=== PATIENT | female | born 1965 | race Caucasian/White ===

== ENCOUNTER 2017-10-25 08:43 | Day surgery (SDC) | payer BC ==
[~2017-10-25 08:43] MED LIST: Lactated Ringers 1,000 ML IV SCH; Sodium Chloride 0.9% 1,000 ML IV SCH; Sodium Chloride 0.9% 10 ML Syringe FLUSH PRN; Sodium Chloride 0.9% 2.5 ML Syringe FLUSH PRN
[2017-10-25] MEDS ORDERED: Lidocaine 2% 5 ML SDV ONE (08:44)
[2017-10-25] MEDS ORDERED: fentaNYL 250 MCG/5 ML SDV ONE (08:44)
[2017-10-25] MEDS ORDERED: Ondansetron 4 MG/2 ML SDV ONE (08:44)
[2017-10-25] MEDS ORDERED: Propofol 200 MG/20 ML SDV ONE (08:44)
[2017-10-25] MEDS ORDERED: Midazolam 1 MG/ML 2 ML SDV ONE (08:44)
--- NOTE | 2017-10-25 10:22 | PCM.PREANE ---
Preanesthetic Assessment - Anesthesia/Transfusion/Family Hx Anesthesia History: Prior Anesthesia Without Reaction Family History of Anesthesia Reaction: No Transfusion History: No Prior Transfusion(s) Intubation History: Unknown - Review of Systems General: No Symptoms Pulmonary: No Symptoms Cardiovascular: No Symptoms Gastrointestinal: No Symptoms Neurological: No Symptoms Other: Reports: None - Physical Assessment NPO Status Date: 10/24/17 NPO Status Time: 23:00 O2 Sat by Pulse Oximetry: 96 Respiratory Rate: 16 Vital Signs: Last Vital Signs Temp 37.5 C 10/25/17 09:15 Pulse 72 10/25/17 09:15 Resp 16 10/25/17 09:15 BP 136/81 10/25/17 09:15 Pulse Ox 96 10/25/17 09:15 Height: 1.65 m Weight: 87.09 kg ASA Class: 2 Mental Status: Alert & Oriented x3 Airway Class: Mallampati = 2 Dentition: Reports: Normal Dentition Thyro-Mental Finger Breadths: 3 Mouth Opening Finger Breadths: 3 ROM/Head Extension: Full Lungs: Clear to Auscultation, Normal Respiratory Effort Cardiovascular: Regular Rate, Regular Rhythm - Lab Values: Laboratory Last Values WBC 3.35 K/uL (4.0-11.0) L 10/25/17 09:25 RBC 4.84 M/uL (4.30-5.90) 10/25/17 09:25 Hgb 15.3 g/dL (12.0-16.0) 10/25/17 09:25 Hct 43.7 % (36.0-46.0) 10/25/17 09:25 MCV 90.3 fL (80.0-98.0) 10/25/17 09:25 MCH 31.6 pg (27.0-32.0) 10/25/17 09:25 MCHC 35.0 g/dL (31.0-37.0) 10/25/17 09:25 RDW Std Deviation 39.1 fl (28.0-62.0) 10/25/17 09:25 RDW Coeff of Hamida 12 % (11.0-15.0) 10/25/17 09:25 Plt Count 205 K/uL (150-400) 10/25/17 09:25 MPV 9.40 fL (7.40-12.00) 10/25/17 09:25 Nucleated RBC % 0.0 /100WBC 10/25/17 09:25 Nucleated RBCs # 0 K/uL 10/25/17 09:25 - Allergies Allergies/Adverse Reactions: Allergies Allergy/AdvReac Type Severity Reaction Status Date / Time No Known Allergies Allergy Verified 10/20/17 15:16 - Blood Blood Available: No - Anesthesia Plan Pre-Op Medication Ordered: None - Acknowledgements Anesthesia Type Planned: General Anesthesia Pt an Appropriate Candidate for the Planned Anesthesia: Yes Alternatives and Risks of Anesthesia Discussed w Pt/Guardian: Yes Pt/Guardian Understands and Agrees with Anesthesia Plan: Yes PreAnesthesia Questionnaire Other HEENT History: wears glasses, conedystrophy Gastrointestinal History: Reports: GER[employer] History: Reports: Musculoskeletal History: Reports: None Endocrine/Metabolic History: Reports: Obesity/BMI 30+ Hematologic History: Reports: Anemia - Past Surgical History Head Surgeries/Procedures: Reports: None Female Surgical History: Reports: Section Musculoskeletal Surgical History: Reports: Other (See Below) Other Musculoskeletal Surgeries/Procedures:: neuroma removed from rt foot - SUBSTANCE USE Smoking Status *Q: Never Smoker Days Per Week of Alcohol Use: 1 Recreational Drug Use History: No - HOME MEDS Home Medications: Home Meds Acyclovir 2 tab PO ASDIRECTED PRN 10/20/17 [History] Famotidine [Pepcid AC] 20 mg PO DAILY 10/20/17 [History] Ferrous Sulfate [Iron] 1 tab PO DAILY 10/20/17 [History] Vit A/C/E AC/Znox/Cupric Oxide [Eye Vitamin-Minerals Tablet] 2 tab PO DAILY 11/03 [History] - CURRENT (IN HOUSE) MEDS Current Meds: Current Medications Sodium Chloride (Normal Saline) 1,000 mls @ 125 mls/hr IV ASDIRECTED NOLBERTO Lactated Ringer's (Ringers, Lactated) 1,000 mls @ 100 mls/hr IV ASDIRECTED NOLBERTO Last Admin: 10/25/17 09:14 Dose: 100 mls/hr Sodium Chloride (Saline Flush) 10 ml FLUSH ASDIRECTED PRN PRN Reason: Keep Vein Open Sodium Chloride (Saline Flush) 2.5 ml FLUSH ASDIRECTED PRN PRN Reason: Keep Vein Open Discontinued Medications Fentanyl (Sublimaze) Confirm Administered Dose 250 mcg .ROUTE .STK-MED ONE Stop: 10/25/17 08:45 Lidocaine (Xylocaine-Mpf 2%) Confirm Administered Dose 5 ml .ROUTE .STK-MED ONE Stop: 10/25/17 08:45 Midazolam HCl (Versed 1 Mg/Ml) Confirm Administered Dose 2 mg .ROUTE .STK-MED ONE Stop: 10/25/17 08:45 Ondansetron HCl (Zofran) Confirm Administered Dose 4 mg .ROUTE .STK-MED ONE Stop: 10/25/17 08:45 Propofol (Diprivan 20 Ml) Confirm Administered Dose 200 mg .ROUTE .STK-MED ONE Stop: 10/25/17 08:45
[2017-10-25] MEDS ORDERED: fentaNYL 100 MCG/2 ML SDV IVPUSH PRN (11:10)
[2017-10-25] MEDS ORDERED: Ketorolac 30 MG/ML SDV ONE (12:16)
[2017-10-25] MEDS ORDERED: Acetaminophen/oxyCODONE 325-5 MG Tab PO PRN (12:59)
[2017-10-25] MEDS ORDERED: Lactated Ringers 1,000 ML IV SCH (13:00)
--- NOTE | 2017-10-25 13:04 | PCM.OPNOTE ---
- General Post-Op/Procedure Note Date of Surgery/Procedure: 10/25/17 Operative Procedure(s): Hysteroscopy, polypectomy and Dilatation with curettage Findings: Anteverted uterus, mobile, 6 weeks size. No adnexal masses. Uterus sounded to 7cm Two left lateral wall endometrial polyp. Proabable Posterior wall submucosal fibroid Pre Op Diagnosis: 1) Abnormal bleeding. 2) Polyp Post-Op Diagnosis: 1) Abnormal bleeding. 2) Polyp. 3) Probable fibroid Anesthesia Technique: General LMA Primary Surgeon: Clara Weir Pathology: Polyps, possible fibroid, endometrial curettings Fluid Replacement, Intraop: 1,500 EBL in mLs: 15 Complications: None Condition: Good
--- NOTE | 2017-10-25 13:06 | PCM.POSTAN ---
POST ANESTHESIA ASSESSMENT - MENTAL STATUS Mental Status: Alert, Oriented - RESPIRATORY Respiratory Status: Respiratory Rate WNL, Airway Patent, O2 Saturation Stable - CARDIOVASCULAR CV Status: Pulse Rate WNL, Blood Pressure Stable - GASTROINTESTINAL GI Status: No Symptoms - PAIN Pain Score: 1 ("a little crampy") - POST OP HYDRATION Hydration Status: Adequate & Stable - OBSERVATIONS Free Text/Narrative:: No anesthesia complications
--- NOTE | 2017-10-25 13:57 | PCM48HPAN ---
Post Anesthesia Note - EVALUATION WITHIN 48HRS OF ANESTHETIC Vital Signs in Normal Range: Yes Patient Participated in Evaluation: Yes Respiratory Function Stable: Yes Airway Patent: Yes Cardiovascular Function Stable: Yes Hydration Status Stable: Yes Pain Control Satisfactory: Yes Nausea and Vomiting Control Satisfactory: Yes Mental Status Recovered: Yes Resp Rate: 16 Blood Pressure: 119/79 - COMMENTS/OBSERVATIONS Free Text/Narrative:: No apparent anesthesia complications
--- NOTE | 2017-10-25 20:26 | OR ---
SURGEON: Clara Weir MD DATE OF PROCEDURE: 10/25/2017 PREOPERATIVE DIAGNOSES: 1. Abnormal uterine bleeding. 2. Endometrial polyp. POSTOPERATIVE DIAGNOSES: 1. Abnormal uterine bleeding. 2. Endometrial polyp. 3. Probable submucosal fibroid. ANESTHESIA: General LMA. ESTIMATED BLOOD LOSS: Minimal. COMPLICATIONS: None. DISPOSITION: Stable to recovery room. PATHOLOGY: Endometrial polyps, possible submucosal fibroid. Endometrial curettings. FINDINGS: Mobile anteverted uterus, sounded to 7 cm. No cervical lesions visualized and no adnexal masses palpated. Hysteroscopic findings showed right lateral wall endometrial polyps. There was also a probable small posterior wall submucosal fibroid. The endometrium was otherwise atrophic towards at the fundus but fluffy anteriorly. Both fallopian tube ostia were visualized. BRIEF HISTORY: The patient is a 52-year-old, who presented to the office with a episode of prolonged bleeding just shy of one year after her last normal menstrual period. Sonohysterogram showed a large endometrial polyp and office endometrial biopsy was reported as benign, proliferative. I reviewed the sonohysterogram findings with the patient, recommended to proceed with hysteroscopic polypectomy. The patient accepted the recommendation. The risks of the procedure were discussed with the patient in detail including, but not limited to bleeding, infection, injury to the uterus, cervix, and all the surrounding organs. An appropriate surgical consent was obtained. DESCRIPTION OF PROCEDURE: The patient was taken to the operating room, where she underwent induction of general anesthesia without difficulty. After adequate level of anesthesia, she was placed in dorsal lithotomy position, prepped and draped in the usual sterile fashion for vaginal procedure. The bladder was emptied. SCDs were in place. A time-out was held.Examination under anesthesia revealed the aforementioned findings. A bivalve speculum was placed in the vagina and the anterior lip of the cervix was grabbed with an Allis clamp. The uterine cavity was sounded to a depth of 7 cm. The cervical os was serially dilated up to #7 Hegar dilator and a 6.5 mm MyoSure operative hysteroscope was inserted into the uterine cavity under direct visualization using normal saline as a distention media. Upon entering the uterine cavity, the aforementioned pathology was noted. Outflow channel of the MyoSure device was then removed under direct visualization and the MyoSure tissue retrieval device was inserted through this channel. The retrieval device was then aligned along the polyps and they were both resected completely. It was then aligned on the posterior wall along the probable submucosal fibroid and this was also resected easily completely. Survey of the uterine cavity post resection revealed no uterine wall injury. The hysteroscope device was then removed from the cavity and gentle endometrial curetting was performed with scanty amount of tissue obtained. The hysteroscope was then reinserted and a survey of the endometrial cavity was performed once again and no injuries were noted. Once this was completed, all of the instruments were removed from the patient's vagina. The area on the cervix where the Allis clamp was placed was found to be hemostatic. All sponge and instrument counts were correct. Input and output of normal saline were recorded by the MyoSure management system. Please refer to the nursing records for accurate measurements. The patient was taken to the recovery in a stable condition. OMAIRA / JUSTIN /[id number] BELKIS
== END 2017-10-25 14:30 | disposition home or self-care (01) ==
LOC: MW.SDS 08:43
PROVIDERS: ATTEND Obstetrics & Gynecology
DX: N84.0 Polyp of corpus uteri (principal); D64.9 Anemia, unspecified; K21.9 Gastro-esophageal reflux disease without esophagitis; E66.9 Obesity, unspecified; Z68.30 Body mass index [BMI] 30.0-30.9, adult; Z79.899 Other long term (current) drug therapy
CPT/HCPCS: 36415; 58356; 85027; J1885; J2250; J2405; J3010; J7120; 00952; 88305; J2704